=== PATIENT | male | born 1965 | race Caucasian/White ===

== ENCOUNTER 2021-05-29 03:28 | Emergency (ER) | payer BC ==
[2021-05-29 04:09] LABS: Hemoglobin 12.9 g/dL (13.5-17.5); Mean Corpuscular HGB CONC 34.1 g/dL (32.0-36.0); Mean Corpuscular Hemoglobin 29.7 pg (27.0-33.0); Mean Corpuscular Volume 86.9 fl (81.2-95.1); Mean Platelet Volume 10.3 fl (7.4-10.4); Platelet Count 277 10x3/uL (150-450); Red Blood Cell (RBC) Count 4.35 10x6/uL (4.32-5.72); White Blood Cell (WBC) Count 24.6 10x3/uL (3.5-10.5)
[2021-05-29 04:12] LABS: INR-International Normal Ratio 0.9; PTT 21.4 sec (22.0-33.0); Prothrombin Time 10.3 sec (9.5-12.1)
[2021-05-29 04:15] LABS: ALT (SGPT) 32 U/L (8-55); AST (SGOT) 51 U/L (5-34); Albumin 3.3 g/dL (3.5-5.0); Alcohol 105 mg/dL (Less than 10); Alkaline Phosphatase 61 U/L (40-110); Anion Gap 15 mmol/L (10-20); BUN (Urea Nitrogen) 26 mg/dL (8.4-25.7); Bilirubin, Total 0.3 mg/dL (0.2-1.2); Calc. Creatinine Clearance 0 mL/min (70-130); Calcium 7.8 mg/dL (7.8-10.44); Carbon Dioxide 19 mmol/L (22-29); Chloride 110 mmol/L (98-107); Glucose 132 mg/dL (70-105); Potassium 4.5 mmol/L (3.5-5.1); Protein, Total 5.3 g/dL (6.0-8.3); Sodium 139 mmol/L (136-145)
[2021-05-29] MEDS ORDERED: Pantoprazole 40 MG VIAL ONE (04:29)
[2021-05-29 04:54] LABS: MDiff Complete? YES; Manual Diff?? YES
[2021-05-29 04:56] LABS: Band 1 % (5-11); Lymphocytes 9 % (21-51); Monocytes 7 % (0-10); Neutrophil 83 % (42-75)
[2021-05-29 04:57] LABS: Platelet Morphology Comment Appears Adequate
[2021-05-29] MEDS ORDERED: Lorazepam 2 MG/ML VIAL ONE ×2 (05:44→06:37)
== END 2021-05-29 06:40 | disposition home or self-care (01) ==
LOC: CSHERS 03:28
DX: K92.2 Gastrointestinal hemorrhage, unspecified (principal); I10 Essential (primary) hypertension; K21.9 Gastro-esophageal reflux disease without esophagitis; Z79.899 Other long term (current) drug therapy
CPT/HCPCS: 74177; 80053; 80307; 83605; 85025; 85610; 85730; 86850; 86900; 86901; 93005; 96374; 96375; 96376; C9113; J2060